=== PATIENT | male | born 1985 | race Caucasian/White ===

== ENCOUNTER 2018-08-10 21:36 | Emergency (ER) | payer SELFPAY ==
[~2018-08-10] VITALS: Ht 180.3 cm; Wt 75.5 kg
[2018-08-10 21:44] VITALS: TEMP 98.9
[2018-08-10] MEDS ORDERED: MULTI VITAMINS1 TAB PO (22:07)
[2018-08-10] MEDS ORDERED: PAXIL40 MG PO (22:07)
[2018-08-10 23:34] VITALS: BP 131/73; PULSE 85
[2018-08-10] MEDS ORDERED: AMOXICILLIN 8751 TAB PO (23:46)
== END 2018-08-10 23:46 | disposition home or self-care (01) ==
LOC: COL.ER 21:36
DX: S71.111A Laceration without foreign body, right thigh, initial encounter (principal); S81.012A Laceration without foreign body, left knee, initial encounter; F17.220 Nicotine dependence, chewing tobacco, uncomplicated; Z23 Encounter for immunization; W54.0XXA Bitten by dog, initial encounter; Y92.009 Unspecified place in unspecified non-institutional (private) residence as the place of occurrence of the external cause

== ENCOUNTER 2018-08-20 17:10 | Emergency (ER) | payer SELFPAY | END 2018-08-20 17:28 | disposition home or self-care (01) | LOC: COL.ER 17:10 | DX: S71.111D Laceration without foreign body, right thigh, subsequent encounter (principal); X58.XXXD Exposure to other specified factors, subsequent encounter ==

== ENCOUNTER → 2020-04-11 | Outpatient (CLI) | payer BC ==
[~2020-04-11] MED LIST: AMOXICILLIN 8751 TAB PO; MULTI VITAMINS1 TAB PO; PAXIL40 MG PO
== END ==
LOC: COL.RAD 07:30
DX: N43.3 Hydrocele, unspecified (principal)

== ENCOUNTER 2023-05-28 09:57 | Emergency (ER) | payer OTHER ==
[~2023-05-28] VITALS: Ht 177.8 cm; Wt 6.8 kg
[~2023-05-28 09:57] MED LIST changes: +FLEXERIL 1010 MG/TAB PO
[2023-05-28 10:02] VITALS: TEMP 98.6
[2023-05-28] MEDS ORDERED: DEPAKOTE 250MG250 MG PO (10:13)
[2023-05-28] MEDS ORDERED: ZOFRAN ODT4 MG PO (11:19)
[2023-05-28 11:39] VITALS: BP 124/82; PULSE 88
== END 2023-05-28 11:36 | disposition home or self-care (01) ==
LOC: COL.ER 09:57
DX: S06.0XAA Concussion with loss of consciousness status unknown, initial encounter (principal); Z87.891 Personal history of nicotine dependence; W10.9XXA Fall (on) (from) unspecified stairs and steps, initial encounter; W22.8XXA Striking against or struck by other objects, initial encounter

== ENCOUNTER 2023-07-10 06:49 | Emergency (ER) | payer OTHER ==
[~2023-07-10] VITALS: Ht 177.8 cm; Wt 70.5 kg
[~2023-07-10 06:49] MED LIST changes: +DEPAKOTE 250MG250 MG PO; +ZOFRAN ODT4 MG PO
[2023-07-10 07:35] LABS: BASO % 0.2 % (0.0-2.0); EOS % 0.2 % (0.0-4.0); GRAN # 4.1 K/mm3 (1.4-6.5); GRAN % 80.4 % (42.2-75.2); HEMATOCRIT 44.9 % (42.0-52.0); HEMOGLOBIN 15.7 g/dl (13.5-18.0); LYMPH # 0.2 K/mm3 (1.2-3.4); LYMPH % 4.7 % (20.0-51.0); MEAN CELL VOLUME 94 fl (80.0-100.0); MEAN CORPUSCULAR HEMOGLOBIN 33 pg (27-31); MEAN CORPUSCULAR HGB CONC 35 g/dl (33.0-37.0); MEAN PLATELET VOLUME 10.7 fl (7.4-10.4); MONO # 0.7 K/mm3 (0.1-0.6); MONO % 14.3 % (1.7-9.3); PLATELET COUNT 178 K/mm3 (130-400); RED BLOOD COUNT 4.76 M/mm3 (4.20-5.60); REDCELL DISTRIBUTION WIDTH-CV 11.7 % (11.5-14.5)
[2023-07-10 07:43] LABS: COLLECTION METHOD CLEAN CATCH
[2023-07-10 07:47] LABS: ALBUMIN 4.2 gm/dL (3.5-5.0); BILIRUBIN,TOTAL 0.7 mg/dL (0.2-1.2); CALCIUM 9.5 mg/dL (8.4-10.2); CREATININE, serum 0.98 mg/dL (0.72-1.25); POTASSIUM 3.4 mmol/L (3.5-4.5); TOTAL PROTEIN 7.2 gm/dL (6.2-8.1)
[2023-07-10 08:14] LABS: URINE APPEARANCE Hazy (CLEAR/HAZY); URINE COLOR Yellow (YELLOW)
[2023-07-10 08:15] LABS: MUCOUS Present (NOT PRESENT); SQUAMOUS EPITHELIAL 0-2 /hpf (0-10); URINE BACTERIA Rare /hpf (NONE SEEN); URINE BLOOD TRACE-INTACT (NEGATIVE); URINE GLUCOSE Negative (NEGATIVE); URINE KETONE Negative (NEGATIVE); URINE NITRATE Negative (NEGATIVE); URINE PROTEIN(semi-quant) 2+ (NEGATIVE); URINE RBC 0-2 /hpf (0-2); URINE UROBILINOGEN 0.2 E.U/dL (0.2-1.0)
[2023-07-10] MEDS ORDERED: ZOFRAN ODT4 MG PO (08:33)
[2023-07-10 08:50] VITALS: BP 124/72; PULSE 81; TEMP 98.1
== END 2023-07-10 08:50 | disposition home or self-care (01) ==
LOC: COL.ER 06:49
PROVIDERS: Emergency Medicine
DX: R11.2 Nausea with vomiting, unspecified (principal); R19.7 Diarrhea, unspecified
CPT/HCPCS: J2405; J7030